=== PATIENT | male | born 1975 | race Caucasian/White ===

== ENCOUNTER 2020-03-13 14:14 | Emergency (ER) | payer OTHER, SELFPAY ==
[2020-03-13 14:17] VITALS: BP 126/84; PULSE 71; TEMP 36.9; O2SAT 99
--- NOTE | 2020-03-13 14:18 | ED.GENADUL_ITS ---
Discharge Plan Disposition Patient Disposition: HOME Condition: Good Discharge Details Chief Complaint: Orthopedic Clinical Impression: MCL sprain of right knee Primary Care Provider: Trina Ya ED Provider: Kasie Estevez Home Meds and New Rx's Prescriptions: Continued ibuprofen 800 MG tablet 800 mg PO TID PRN PRNQty: 30 RF: 0 Discharge Instructions Instructions: Knee Sprain (ED) Additional Instructions: Your x-ray is reassuring. However, as we discussed, I am concerned for MCL sprain. Encourage rest, ice, elevation. Tylenol and/or ibuprofen as needed for discomfort. Please continue with brace until reevaluated by orthopedics. Please call orthopedics tomorrow to schedule follow-up appointment [phone]. If you develop fever/chills, increased pain or other new/worsening symptoms please seek care urgently once again. Referrals: Trina Ya MD [Primary Care Provider] - Medical Decision Making Patient is a pleasant 44-year-old gentleman presenting today with chief complaint of right knee pain. 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 Reports that he has done this multiple times historically. Did have MCL, ACL and cartilage repair in 1999. Reports multiple episodes of tweaking since that time. States that this occurred when he was going from a kneeling to standing position. Denies any fall or trauma to the knee. States that the pain is primarily located at the patella. Denies other injury the time of the incident. On exam, patient has no effusion. No break in skin. Knee is not erythematous or warm. He has 2+ distal pulses. He has full extension, only able to flex to approximately 45 degrees secondary to discomfort. Pain is primarily laterally. Patient does have pain with palpation over the MCL as well as discomfort with valgus stress testing. Mild laxity. No laxity with assessment of the LCL, ACL or PCL. Patient is able to straight leg raise. No palpable deficit in the patella. Plan for imaging. Patient is receiving Tylenol and ibuprofen for discomfort. FINDINGS: Bones/joints: Normal. Alignment is anatomic without evidence for fracture or dislocation. Soft tissues: Normal. No evidence for joint effusion. IMPRESSION: No definite evidence for acute abnormality. Discussed these findings with the patient. Advised MCL strain. Patient was fitted with a hinged knee brace to help support the MCL. He had his original surgery at [facility] and like to follow-up there once again. Will call orthopedics tomorrow to schedule follow-up appointment. In the interim, I advised to continue with the brace. Encourage rest, ice, elevation. He is given return precautions. All his questions and concerns were addressed and is agreement with plan. HPI General Mode of arrival: ambulatory . Date/Time Provider Initiated Documentation: 03/13/20 14:18 . Limitations to Documentation: no limitations . Information obtained by: patient and RN notes reviewed . History of Present Illness 44 year old M presents to the emergency department with the chief complaint of right knee pain, described as severe, with intensity rated at 9. Quality is described as sharp, and is localized to the right and lower extremity. Patient reports no radiation. Patient started experiencing this hour(s) (1) and it has been constant. Immobilization improves symptom(s), Movement worsens symptoms . Patient notes no other symptoms.. Patient did receive the following treatments prior to arrival, none Related Data Home Medications Medication Instructions Recorded Confirmed ibuprofen 800 mg PO TID PRN PRN #30 tablet 03/20/15 03/13/20 Previous Rx's Medication Instructions Recorded ibuprofen 800 mg PO TID PRN PRN #30 tablet 03/20/15 Allergies Allergy/AdvReac Type Severity Reaction Status Date / Time peanut Allergy Anaphylaxsi Unverified 03/13/20 14:21 s Review of Systems Constitutional Constitutional: Reports as per HPI, Denies chills, Denies fever(s), Denies headache(s) and Denies weakness ENT Ears, Nose, Mouth, and Throat: Denies headache(s) Cardiovascular Cardiovascular: Reports as per HPI Respiratory Respiratory: Reports as per HPI and Denies cough Musculoskeletal Musculoskeletal: Reports as per HPI and Denies tingling Integumentary/Breasts Skin/Breast: Reports as per HPI, Denies rash and Denies wounds Neurologic Neurologic: Reports as per HPI, Denies headache(s), Denies tingling, Denies paresthesias and Denies weakness [facility] Social History Smoking/Tobacco Use Status: Never Drug use: Never Substance use type: does not use Do you feel safe at home: Yes Do you feel safe in your relationship?: Yes Exam Const General: cooperative, healthy appearing, comfortable, no acute distress, well developed and well groomed Nutritional Appearance: average body habitus and well nourished Orientation: alert and awake Resp Effort & Inspection: normal respiratory effort, able to speak in complete sentences and no respiratory distress Cardio Rate: regular rate Rhythm: regular rhythm Skin General skin exam: no rashes or lesions noted Lesions: no lesions Rashes: no rashes Trauma: no lacerations or abrasions Neuro General: patient alert and patient awake Cognition: normal cognition Speech: speech normal Gait: normal gait Motor: muscle tone normal throughout Sensory Exam: no sensory deficits noted Extrem Right lower extremity: normal to inspection, full ROM, normal capillary refill, no joint enlargement, hip/thigh Details: normal to inspection and normal ROM; no tenderness, knee Details: normal to inspection, tenderness Location: of the me dial joint line, knee ligament exam normal Details: anterior drawer test normal, posterior drawer test normal and valgus stress test normal and knee ligament exam abnormal Details: varus stress test normal (mild laxity, pain) Details: pain noted; no swelling, ROM abnormal (full extension, flexion to 45*), no abrasions, no lacerations, no ecchymosis and no crepitus, lower leg Details: normal to inspection and no edema; no tenderness, no localized swelling, no palpable cords, no ecchymosis, no crepitus and no deformity, ankle Details: normal to inspection and no edema; no tenderness and no swelling and foot (2+ distal pulses) Details: normal capillary refill Psych Appearance: grossly normal and well kempt Mental Status: mental status grossly normal Speech and Movement: speech and movement normal
[2020-03-13] MEDS: Acetaminophen 500 MG TAB 1000 MG PO (14:27)
[2020-03-13] MEDS: Ibuprofen 600 MG TAB PO (14:28)
--- NOTE | 2020-03-13 14:55 | DI.RAD_ITS ---
EXAM: XR KNEE RT 4V AP,LAT,SULEMA,PAT CLINICAL HISTORY: patella injury. TECHNIQUE: 2D digital imaging was performed. COMPARISON: No exams were available for comparison FINDINGS: BONES: No acute fracture is present. No bony destructive lesion is seen. JOINTS: The knee is normally aligned. No joint effusion is seen. SOFT TISSUE: Normal. IMPRESSION: Unremarkable radiographs of the right knee. DATA REPOSITORY: RADIATION DOSE DELIVERED:
--- NOTE | 2020-03-13 15:14 | DI.VRAD_ITS ---
PROCEDURE INFORMATION: Exam: XR Left Knee Exam date and time: 03/13/2020 2:22 PM Age: 44 years old Clinical indication: Pain; Knee; Patient HX: Right patella injury TECHNIQUE: Imaging protocol: XR Left knee. Views: 4 or more views. COMPARISON: No relevant prior studies available. FINDINGS: Bones/joints: Normal. Alignment is anatomic without evidence for fracture or dislocation. Soft tissues: Normal. No evidence for joint effusion. IMPRESSION: No definite evidence for acute abnormality. COMMENTS: Preliminary interpretation is based on receipt of 5 image(s). A final report will be issued subsequently. Dictated and Authenticated by: Lizzy Guajardo MD. Ordering:ISAIAS Ferro MD
== END 2020-03-13 15:36 | disposition home or self-care (01) ==
PROVIDERS: Emergency Provider Physician Assistant; PCP Family Medicine
DX: S83.411A Sprain of medial collateral ligament of right knee, initial encounter (principal); X50.9XXA Other and unspecified overexertion or strenuous movements or postures, initial encounter
CPT/HCPCS: 29505; 99284; 73564; L1810

== ENCOUNTER 2024-05-28 11:06 | Emergency (ER) | payer OTHER, SELFPAY ==
[2024-05-28 11:14] VITALS: BP 111/68; PULSE 64; RESP 16; TEMP 37; O2SAT 99
--- NOTE | 2024-05-28 11:23 | ED.GENADUL_ITS ---
Discharge Plan Disposition Patient Disposition: Home Condition: Stable Discharge Details Clinical Impression: Tendinitis, Plantar fascial fibromatosis of right foot Primary Care Provider: Trina Ya ED Provider: Kevin Vasquez Home Meds and New Rx's Prescriptions: New diclofenac sodium 1 % gel 2 g topical QID Qty: 100 0RF Rx Instructions: apply to single elbow, wrist or hand; for hand includes palm/fingers/back of hand methocarbamol 750 mg tablet 1,500 mg PO QID 10 Days Qty: 80 0RF Continued ibuprofen 800 MG tablet 800 mg PO TID PRN PRNQty: 30 0RF Discharge Instructions Instructions: Tendinopathy, Kelly's Neuroma, Diclofenac (Topical), Methocarbamol Additional Instructions: You were seen in the emergency department for your pain of your anterior right parham consistent with tendinitis, he also have pain in your fourth and fifth toes consistent with a possible Kelly's neuroma as well as a finding of a possible ganglion cyst or plantar fibromatosis or plantar fascia. This likely needs injections of steroids by specialized provider, I am providing you a referral to podiatry. For your tendinitis please take regular doses of Tylenol, 1000 mg every 6 hours, take 40 mg of ibuprofen penitentiary between Tylenol dosings also every 6 hours. Take the prescribed methocarbamol which is your skeletal muscle relaxer sent to [facility] in [place] as directed. I also prescribed you topical diclofenac which is a topical anti-inflammatory that should help with acute pain. You will likely need to get orthotic shoes with cut outs to avoid putting pressure on the significant fibroma on the bottom of your foot. We are providin g you with crutches to help with pain relief. Please return to the emergency department for any severe swelling of unilateral lower extremity, redness spreading outward from either area of pain, drainage of pus from any area, complete numbness of the foot. Referrals: [facility] [Provider Group] Trina Ya MD [Primary Care Provider] - HPI General Date/Time Provider Initiated Documentation: 05/28/24 11:23 . HPI Narrative: 48 year-old male presents to ED today by POV/ambulating with a chief complaint of R foot pain at base of 4th/5th MTP, and a swollen soft tissue nodule on the plantar surface of the foot, with onset one year ago with a brief episode that resolved spontaneously, now it's back for the past 2 weeks. Quality described as burning shooting pains like needles at the bas eof 4/5th MTP radiating up the anterior tibialis tendon area to peroneal nerve/head of fibula, no radiation to skin changes, redness, warmth to touch, drainage of pus from the area, trauma. Severity is described as severe. Palliating factors include ibuprofen not helping. Provoking factors include nothing specific. Patient not anticoagulated. Related Data Home Medications Medication Instructions Recorded Confirmed ibuprofen 800 mg tablet 800 mg PO TID PRN PRN ##30 15 05/28/24 diclofenac sodium 1 % topical gel 2 g topical QID #100 grams 05/28/24 methocarbamol 750 mg tablet 1,500 mg (2 x 750 mg) PO QID 10 05/28/24 days #80 tabs Previous Rx's Medication Instructions Recorded ibuprofen 800 mg tablet 800 mg PO TID PRN PRN ##30 03/20/15 diclofenac sodium 1 % topical gel 2 g topical QID #100 grams 05/28/24 methocarbamol 750 mg tablet 1,500 mg (2 x 750 mg) PO QID 10 05/28/24 days #80 tabs Allergies Allergy/AdvReac Type Severity Reaction Status Date / Time peanut Allergy Anaphylaxsi Unverified 05/28/24 14:11 s General Stated Complaint: Orthopedic ROSINA: 4 Review of Systems All systems reviewed & are unremarkable except as noted in HPI and below Exam Narrative Exam Narrative: GENERAL APPEARANCE: Well-nourished, non-toxic, awake and alert, atraumatic, no acute distress. SKIN: Warm, pink, dry, intact, without rashes/lesions/ulcerations. HEAD: Normocephalic, atraumatic, normal hair distribution for gender/age. EYES: Normal conjunctiva, no exudates on lids/lashes. ENT: Nares patent, no circumoral cyanosis, no facial swelling NECK: Supple, trachea midline, painless cervical ROM. LUNGS/CHEST: Non-labored respirations, normal A/P diameter, symmetrical expansion, no chest wall deformity HEART (CV/PV): Regular rate, R dorsalis pedis pulse 2+, no peripheral edema, no JVD. ABDOMEN: Soft, non-distended, no guarding. MSK: Normal ROM, no swelling/deformity to bilateral UEs or LEs, moving all e xtremities without weakness, no cyanosis, spine midline without tenderness, normal curvature. R FOOT: 2 x 2 centimeter mobile round fluctuant but soft cystlike mass in the plantar fascia, fourth and fifth toes are resting in slight extension with pain with stretching into flexion, palpable tension in the anterior tibialis tendon, sensation grossly intact, right dorsalis pedis pulse 2+, no warmth to touch, no redness, no pain with passive range of motion. NEURO: Mental Status AAOx4 - alert to person, place, time, events No facial droop, no forehead involvement. Motor: No focal weakness - strength 5/5 in bilateral UEs and LEs, proximal and distal, symmetric. Sensory: sensation intact to light touch globally. Gait mildly antalgic. PSYCH: euthymic, cooperative, pleasant, appropriate speech Course Vital Signs Vital signs: Vital Signs Temperature 37.0 C 05/28/24 11:14 Pulse 64 05/28/24 11:14 Respiratory Rate 16 05/28/24 11:14 Blood Pressure 111/68 05/28/24 11:14 Pulse Oximetry 99 05/28/24 11:14 Temperature 37.0 C 05/28/24 11:14 Temperature Source Tympanic 05/28/24 11:14 Pulse 64 05/28/24 11:14 Respiratory Rate 16 05/28/24 11:14 Blood Pressure 111/68 05/28/24 11:14 Blood Pressure Position Sitting 05/28/24 11:14 Pulse Oximetry 99 05/28/24 11:14 Oxygen Delivery Method Room Air 05/28/24 11:14 Oxygen Flow Rate 0 05/28/24 11:14 Pain Level 8 05/28/24 11:14 Comment took 1500mg APAP at 0600 05/28/24 11:14 Medical Decision Making This dictation utilizes [id number] dictation software and may contain unedited grammatical errors. 48 year-old male presents to ED today by POV/ambulating with a chief complaint of R foot pain at base of 4th/5th MTP, and a swollen soft tissue nodule on the plantar surface of the foot, with onset one year ago with a brief episode that resolved spontaneously, now it's back for the past 2 weeks. Quality described as burning shooting pains like needles at the bas eof 4/5th MTP radiating up the anterior tibialis tendon area to peroneal nerve/head of fibula, no radiation to skin changes, redness, warmth to touch, drainage of pus from the area, trauma. Severity is described as severe. Palliating factors include ibuprofen not helping. Provoking factors include nothing specific. Patients' medical history: Noncontributory. Family and social history: Noncontributory. Pertinent exam findings / vital signs include R FOOT: 2 x 2 centimeter mobile round fluctuant but soft cystlike mass in the plantar fascia, fourth and fifth toes are resting in slight extension with pain with stretching into flexion, palpable tension in the anterior tibialis tendon, sensation grossly intact, right dorsalis pedis pulse 2+, no warmth to touch, no redness, no pain with passive range of motion. Differential / pathologies of concern include tendinitis, sprain or strain, ganglion cyst, plantar fasciitis, fibromatosis, Kelly's neuroma, inflammatory arthritis Diagnostic studies of: -XR R Foot, XR Soft Tissue R Foot, CBC, BMP, CRP/ESR. -XR without abnormality -US shows concern plantar fibromatosis -CBC benign -BMP benign -CRP/ESR benign Interventions of: -methocarbamol Rx for tendinitis, voltaren for symptomatic relief. Refer podiatry. ED Course/Assessment/Plan: 48-year-old male presents with severe right foot pain at the base of the fourth fifth MTP, question Kelly's neuroma with concurrent plantar fibromatosis with his soft tissue 2 x 2 centimeter mobile round tender nodule in the plantar fascia, he does have palpable tension at the proximal anterior tibialis tendon insertion, sensation is grossly intact, circulation is grossly intact in the foot, I discussed symptomatic treatment, counseled on the need for orthotics, offered crutches which she declined, referred to podiatry, strict return criteria for increasing signs of infection or neurovascular compromise of the right foot. Findings not consistent with fracture, abscess, neurovascular compromise. Disposition of Tendinitis, plantar fascial fibromatosis of right foot. Patient verbalized understanding of the plan and return to ED criteria and engaged in shared decision making. Medical Records Medical records reviewed: Yes I reviewed the patient's medical records. Imaging Data Radiologic Study: Attestation: I personally reviewed and interpreted this imaging study as follows: Imaging: X-Ray Radiologist's impression: EXAM: XR FOOT RT COMPLETE CLINICAL HISTORY: R foot pain. TECHNIQUE: 2D digital imaging was performed of the right foot. Three images were obtained. AP, oblique and lateral views were obtained. COMPARISON: No exams were available for comparison FINDINGS: BONES: No acute fracture is present. No bony destructive lesion is seen. JOINTS: No dislocation present. SOFT TISSUE: Normal. IMPRESSION: Unremarkable radiographs of the right foot. Radiologic Study #2: Attestation: I personally reviewed and interpreted this imaging study as follows: Imaging: Ultrasound Radiologist's impression: EXAM: US SOFT TISSUE EXTREMITY CLINICAL HISTORY: R plantar foot, ?cyst. TECHNIQUE: Ultrasound was performed using standard protocol. COMPARISON: No exams were available for comparison FINDINGS: Sonographic assessment utilizing grayscale and color Doppler imaging was performed and targeted to the area of clinical concern. There are multiple well-circumscribed hypoechoic nodules on the plantar surface of the foot. The largest measures 3.1 x 1.9 x 3.2 cm. The the largest lesion show some internal mild vascularity. IMPRESSION: Multiple hypoechoic nodules on the plantar surface of the foot. Primary diagnostic concern is for plantar fibromatosis. Soft tissues are conus considered less likely but cannot be entirely excluded. A nonemergent outpatient MRI of the foot should be obtained for further evaluation. Lab Data Lab results reviewed: Yes I reviewed the patient's lab results. Labs: Laboratory Tests Range/Units 05/28/24 05/28/24 12:00 13:00 WBC (4.4-10.8) 10^3/uL 3.46 L RBC (4.36-5.78) 10^6/uL 5.35 Hgb (13.5-17.5) g/dL 14.5 Hct (40.0-50.0) % 44.8 MCV (80-95) fL 84 MCH (27.0-33.0) pg 27.1 MCHC (32.0-36.0) % 32.4 RDW (11.8-14.1) % 12.9 Plt Count (130-400) 10^3/uL 210 MPV (8.0-11.0) fL 9.5 Immature Gran % % 0.3 Neutrophils % % 50.3 Lymphocytes % % 35.8 Monocytes % % 10.7 Eosinophils % % 2.0 Basophils % % 0.9 Nucleated RBC % (0.0-0.3) % 0.0 Absolute Neutrophils (1.2-6.7) 10^3/uL 1.74 Absolute Lymphocytes (1.2-3.4) 10^3/uL 1.24 Absolute Monocytes (0.1-0.8) 10^3/uL 0.37 Absolute Eosinophils (0.0-0.7) 10^3/uL 0.07 Absolute Basophils (0.0-0.2) 10^3/uL 0.03 ESR (0-15) mm/hr < 1 Sodium Cancelled 143 Potassium Cancelled 4.2 Chloride Cancelled 108 H Carbon Dioxide Cancelled 27.7 Anion Gap Cancelled 7.3 BUN Cancelled 11 Creatinine Cancelled 1.0 Est GFR (CKD-EPI 2020) Cancelled 92.26 Glucose Cancelled 100 Calcium Cancelled 8.6 C-Reactive Protein Cancelled < 0.50 Quality:SDOH Health Related Social Needs: No Data to Display PFSH All Active Problems (Updated 05/28/24 @ 14:07 by JASPREET Kaur) Plantar fascial fibromatosis of right foot (Acute) Tendinitis (Acute) Social History Smoking/Tobacco Use Status: Never Smoking risk assessment performed?: Yes Drug use: Never Substance use type: does not use Do you feel safe at home: Yes Do you feel safe in your relationship?: Yes
--- NOTE | 2024-05-28 11:30 | DI.RAD_ITS ---
Exam(s) XR FOOT RT COMPLETE EXAM: XR FOOT RT COMPLETE CLINICAL HISTORY: R foot pain. TECHNIQUE: 2D digital imaging was performed of the right foot. Three images were obtained. AP, obl ique and lateral views were obtained. COMPARISON: No exams were available for comparison FINDINGS: BONES: No acute fracture is present. No bony destructive lesion is seen. JOINTS: No dislocation present. SOFT TISSUE: Normal. IMPRESSION: Unremarkable radiographs of the right foot. DATA REPOSITORY: RADIATION DOSE DELIVERED:
[2024-05-28 12:12] LABS: Abs Immature Grans 0.01 10^3/uL (0.0-0.06); Absolute Basophil Count 0.03 10^3/uL (0.0-0.2); Absolute Eosinophil Count 0.07 10^3/uL (0.0-0.7); Absolute Lymphocyte Count 1.24 10^3/uL (1.2-3.4); Absolute Monocyte Count 0.37 10^3/uL (0.1-0.8); Absolute Neutrophil Count 1.74 10^3/uL (1.2-6.7); Basophils % 0.9 %; HCT 44.8 % (40.0-50.0); HGB 14.5 g/dL (13.5-17.5); Immature Grans % 0.3 %; Lymphocytes % 35.8 %; MCH 27.1 pg (27.0-33.0); MCHC 32.4 % (32.0-36.0); MCV 84 fL (80-95); MPV 9.5 fL (8.0-11.0); Monocytes % 10.7 %; Neutrophils % 50.3 %; Platelet Count 210 10^3/uL (130-400); RBC 5.35 10^6/uL (4.36-5.78); RDW 12.9 % (11.8-14.1); RDW-SD 39.3 fL; WBC 3.46 10^3/uL (4.4-10.8)
--- NOTE | 2024-05-28 12:20 | DI.US_ITS ---
Exam(s) US SOFT TISSUE EXTREMITY EXAM: US SOFT TISSUE EXTREMITY CLINICAL HISTORY: R plantar foot, ?cyst. TECHNIQUE: Ultrasound was performed using standard protocol. COMPARISON: No exams were available for comparison FINDINGS: Sonographic assessment utilizing grayscale and color Doppler imaging was performed and targeted to th e area of clinical concern. There are multiple well-circumscribed hypoechoic nodules on the plantar surface of the foot. The lar gest measures 3.1 x 1.9 x 3.2 cm. The the largest lesion show some internal mild vascularity. IMPRESSION: Multiple hypoechoic nodules on the plantar surface of the foot. Primary diagnostic concern is for pl teto fibromatosis. Soft tissues are conus considered less likely but cannot be entirely excluded. A nonemergent outpatient MRI of the foot should be obtained for further evaluation. DATA REPOSITORY:
[2024-05-28 12:25] LABS: ESR < 1 mm/hr (0-15)
[2024-05-28 13:16] LABS: Anion Gap 7.3 mmol/L (3-11); BUN 11 mg/dL (7-18); C-Reactive Protein < 0.50 mg/dL (<or=0.5); CO2 27.7 mmol/L (21.0-32.0); Calcium 8.6 mg/dL (8.5-10.1); Chloride 108 mmol/L (98-107); Estimated GFR 92.26 (mL/min/1.73m2); Glucose 100 mg/dL (74-106); Potassium 4.2 mmol/L (3.5-5.1); Sodium 143 mmol/L (136-145)
[2024-05-28 14:26] VITALS: BP 111/68; PULSE 64; RESP 16; TEMP 37; O2SAT 99
== END 2024-05-28 14:27 | disposition home or self-care (01) ==
PROVIDERS: Emergency Provider Physician Assistant; PCP Family Medicine
DX: M79.671 Pain in right foot (principal); M72.2 Plantar fascial fibromatosis; M67.873 Other specified disorders of tendon, right ankle and foot
CPT/HCPCS: 36415; 76881; 80048; 85652; 99283; 73630; 85025; 86140

== ENCOUNTER 2024-07-26 15:06 | Emergency (ER) | payer SELFPAY ==
[2024-07-26] VITALS (14 sets, daily range): BP systolic 128–132; BP diastolic 66–74; PULSE 72–88; RESP 10–20; TEMP 36.8; O2SAT 93–98
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
[2024-07-26] MEDS: Ketorolac 15 MG/ML VIAL IVP (15:15)
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
== END 2024-07-26 17:46 | disposition home or self-care (01) ==
PROVIDERS: Emergency Provider Emergency Medicine
DX: R07.81 Pleurodynia (principal)
CPT/HCPCS: 71250; 96374; 99285; 99284; J1885

== ENCOUNTER 2024-07-29 15:05 | Emergency (ER) | payer OTHER, SELFPAY ==
[2024-07-29 15:07] VITALS: BP 121/84; PULSE 79; RESP 16; TEMP 36; O2SAT 97
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
[2024-07-29] MEDS: Lidocaine 5% Patch 2 PATCH TP (15:52)
== END 2024-07-29 16:00 | disposition home or self-care (01) ==
PROVIDERS: Emergency Provider Student in an Organized Health Care Education/Training Program
DX: R07.81 Pleurodynia (principal)
CPT/HCPCS: 76604; 76775; 99282; 99283